=== PATIENT | female | born 1985 | race Caucasian/White ===

== ENCOUNTER 2024-10-04 10:05 | Outpatient (AMB) | payer BC, SELFPAY ==
--- NOTE | 2024-10-04 10:13 | A.SPINEOV_ITS ---
Vital Signs 10/04/24 10:13 Height 5 ft 4 in Weight 175 lb BMI 30.0 Intake Visit Reasons: low back pain Intake Note: Mrs. Kaur is here today c/o low back pain. Special Officer Required: No Allergies amoxicillin Allergy (Severe, Verified 10/04/24 10:14) Unknown Physical Exam Vital Signs: BMI result Body Mass Index 30.0 Assessment & Plan Assessment & Plan (1) Right hip pain: Code(s): M25.551 - Pain in right hip Category: Medical (2) Chronic SI joint pain: Code(s): M53.3 - Sacrococcygeal disorders, not elsewhere classified; G89.29 - Other chronic pain Category: Medical Plan This is a self-referred 39-year-old female who presents today for evaluation of chronic low back pain, chronic SI joint region pain as well as bilateral hip pain, right greater than left. It all started 2 years ago when she began the process of labor for her daughter. She had an uneventful and when she started with contractions she went to the hospital. Initially there was an attempt to do an epidural, briefly worked but then unfortunately stopped working and they are unable to get another want to replace it to give her adequate pain relief. She has a history of scar tissue in her cervix area and unfortunately will labor progressed she was unable to dilate appropriately and was pushing extremely hard for about 5 or 6 hours. She describes it as having intense tearing pain in her low back during the process. Her who is with a reports that she had her knees up to her chest pushing in intense pain for about 5-6 hours. Eventually she was able to give , but since that time she has never felt right. Specifically what she feels is chronic low back pain which is along the beltline which radiates out toward the SI joints and will go down into her hips. There is also a feeling of anterior hip pain. She hears a clunking and a popping feeling when she externally rotates her hip. She will also get electrical sensations that seemed to radiate down her legs into her feet as well. It is very painful makes it difficult to walk. By the time she walks from her car to the door at her work place, she is in tremendous amounts of pain she has to sit down. Sleeping is difficult, activities with her daughter or difficult. It has been a very strenuous. For her just trying to get through the pain. She will take lidocaine patches, Aleve, ibuprofen, Biofreeze, massage, heat, ice etc.. She has also been trialed on steroids. She trialed physical therapy and chiropractic. She had been very frustrated with her quality of life. She came today to see us with an MRI showing degenerative disc disease at L3-4. PMH: She is otherwise healthy, she had a cardiac ablation in 2009 for SVT, she had a LEEP procedure, D and C for miscarriage in 2021, left leg varicose vein removal. She has hemorrhoids from the birthing process as well and needs a hemorrhoidectomy. Social hx: She does not smoke cigarettes,, no alcohol use. Medications: As above, all the above-mentioned [id number] medications done for pain control. Allergies: Amoxicillin Physical exam: Patient is awake alert oriented, no acute distress, she is able to stand up on her own albeit slowly from a chair. Her motor examination reveals some limitations with hip flexion secondary to pain. Distal lower extremity strength and reflexes normal. She has positive finger Srini test. She has tremendous amounts of pain with external rotation of her right hip. She has similar discomfort in her left hip but in the right side she almost jumped off the table with the motion. MAK testing also generates pain primarily on the right side. SI joint compression test directly to the SI joint region does produce some discomfort. Imaging review: There is a lumbar MRI done showing normal alignment, a mild to moderate size disc bulge with no compression of the nerves. No significant disc collapse or spondylolisthesis seen. She reportedly had a right hip x-ray done at [facility] and that was normal. Impression: 39-year-old female as above with a traumatic experience giving , who was normal before that, but afterwards has been experiencing tremendous low back pain along the belt line radiating into her hips, occasional feeling of electrical sensation that shoots down her legs. Her lumbar MRI does not show any significant findings for nerve compression or collapsed disc. There is a small disc bulge at L3-4 but it would not explain this discomfort. Given the history of the legs being hyperflexed during the birthing process and the amount of pushing that was going on, she could have had some kind of hip injury. I am thinking maybe labral tear. Her reports that she had her legs flexes like that for about 4-6 hours. She has tremendous pain with internal but more so with external rotation. The hip x-rays she had done at [facility] was normal but this could be missing some of the deeper anatomy. I will send her for an MRI of the right hip to rule out she has some kind of injury the re. Another possibility with regard to the low back pain situation is SI joint inflammation or instability. It is well-known that during these joints can become slightly lax and with the amount of stress from the pushing, maybe she has some underlying pathology there. I am going to send her to in [facility] for SI joint injections. Hopefully these will give her some relief, and if she has a good response to it she may be a candidate for SI joint fusion. Thank you for allowing us to care for your patient. The total time spent with this visit with this patient was 45 minutes reviewing history, physical exam, lumbar imaging review, and implementation of treatment plan or further diagnostic testing Félix Olguin MD,PhD [facility] Orders: Orders MR hip RT wo/w con Today M25.551 - Pain in right hip Referrals Pain Management Referral G89.29 - Other chronic pain, M53.3 - Sacrococcygeal disorders, not elsewhere classified Coding Level of Care Code New Pt Level 4 (66263) Diagnoses Right hip pain M25.551 Chronic SI joint pain M53.3; G89.29
--- OUTSIDE RECORDS SUMMARY | 2024-10-04 10:47 | XMS_ITS | Continuity of Care Document ---
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 Plan of Treatment Reminders Order Date Submit Date Provider Last Modified By Organization Details Last Modified Time Details Appointments Establish ed Patient 20 2024 10:40A M MARIELLA HENRIQUEZ NP Not available Not available Not available Lab None recorded. Referral orthopedi c spine surgeon referral 2024 [facility], [address] [place] [address] [place], [address], 09/17/2024 14:01:57 Procedures None recorded. Surgeries None recorded. Imaging MRI, lumbar spine, w/o contrast 2024 025 [facility] (Central Scheduling For Imaging And Labs), [address] [place], [address], 09/25/2024 08:19:02 Medication Orders sertralin e 150 mg capsule 2024 025 [facility] #[id number], [address] [place], [address], 09/17/2024 13:46:37 Patient TargetsNo targets recorded. Patient InstructionsNo instructions recorded. Reason for Referral Orthopedic Spine Surgeon Ref erral for Chronic low back pain Referring Physician: Mariella Henriquez, Family Medicine, Encounter Date: 09/17/2024 Results Created Date Observation Date Name Description Value Unit Range Abnormal Flag Note LastModifiedBy Organization Detail LastModifiedTime 09/25/19 25 09/24/2024 MRI, lumba r spine , w/o contr ast Patien t Name: DUKE COFFMAN : [id number] Sex:Fe male 609; 505 Locati on: [facility] - MR [id number] 659 [facility] [address] 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 Compar dread: Lumbar spine radiog raph 09/21/19 24 Findin gs: Alignm ent: The bony alignm ent is well mainta ined. No sublux ation is seen. Bone marrow : The bone marrow signal is well mainta ined. Verteb ral height s are well-p reserv ed. Conus: Conus is normal in appear ance and positi on. Disc spaces : Disc spaces are intact . L1-2: Unrema rkable withou t eviden ce of neural forami nal narrow ing or spinal canal stenos is. L2-3: Mild diffus e disc bulge withou t eviden ce of neural forami na narrow ing or spinal canal stenos is L3-4: Disc protru natividad with no spinal canal or neural forami na narrow ing L4-5: Mild disc bulge with annula r fissur e with no spinal canal or neural forami na narrow ing L5-S1: Diffus e disc bulge withou t signif icant neural forami na narrow ing or spinal canal stenos is. Mild facet arthro celestina is presen t. Annula r fissur e. Admitt ing: MARTINEZ BARRIGA, VIANEY Whyte Consul ting: Krystian briceno Name: DUKE COFFMAN : [id number] Sex:Fe male 609; 505 Locati on: [facility] [id number] [address] [place] [address]- Radiol ogy Report Soft tissue : Prever tebral soft tissue s are unrema rkable . Visual ized abdomi nal viscer a is unrema rkable . Impres natividad: 1.Disc protru natividad at L3-4 with no spinal canal or neural forami nal narrow ing. 2.Inle t fissur es at L4-5 and L5-S1. Attend ing review by Isamar diaz M.D. I have person ally review ed the study and agree with the report ed donnell gs. 1.Read [facility] Site: [facility] ____ Fin al Report Dictat ed: 2024 5:05 pm Dictat ed By: BARTOLO IBRAHIM [facility] Signat ure: 2024 8:16 am Signed By: CHALINO DIAZ MD, ISAMAR Holt ing: VIANEY HENRIQUEZ CNP Consul ting: [facility] (Radiology) [address] [place] [address], [address], 09/25/2024 11:13:56 09/25/19 25 09/24/2024 MRI, lumba r spine , w/o contr ast No observ ation record ed. [facility] Medical Records [address] [place] [address], [id number], 09/25/2024 09:53:53 Result Notes None recorded. Problems Name Problem SNOMED Code Status Onset Date Resolution Date Notes Provider Name and Address Organization Details Recorded Time Low back pain 758348148 Completed 200909/21/2009 Patria Vasquezko otoniel [facility] 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 7 14:07:17 Cough 64554584 Completed 04/21/2017 Mavis Grimes MD [address] [place] [address], [phone] 6, [facility] 7 14:20:52 Chest pain 12593894 Completed 04/21/2017 Mavis Grimes MD [address] [place] [address], [phone] 6, [facility] 7 14:07:21 Paroxysm al supraven tricular tachycar marvel 26962241 Active she gets occasiona l bouts of tachycard ia, she had an ablation in 2010, triggered by anxiety Patria Bradshaw otoniel [facility] 3 15:06:19 Anxiety state 639709200 Active more work based, she does not want to take anything daily, she takes clonazepa m at bedtime Patria frederick [facility] 3 15:06:18 Amenorrh ea 81416233 Completed 04/21/2017 Mavis Grimes MD [address] [place] [address], [phone] , [facility] 7 14:20:47 Loss of appetite 72785898 Completed 04/21/2017 Mavis Grimes MD [address] [place] [address], [phone] , [facility] 7 14:07:08 Depressi ve disorder 95613473 Active she sees psych Patria frederick, [facility] 3 15:06:18 Malaise and fatigue 037177571 Completed 04/21/2017 Mavis Grimes MD [address] [place] [address], [phone] 6, [facility] 7 14:20:43 Anal fissure 59995307 Completed 09/27/2019 MARIELLA HENRIQUEZ NP [address] [place] [address], [phone], [facility] 0 11:38:25 Internal hemorrho ids 93648171 Completed 09/27/2019 MARIELLA HENRIQUEZ NP [address] [place] [address], [phone] , [facility] 0 11:40:09 Vaginiti s 14147418 Completed 04/21/2017 Mavis Grimes MD [address] [place] [address], [phone] 6, [facility] 7 14:21:00 Injury of hand 768826659 Completed 04/21/2017 Mavis Grimes MD [address] [place] [address], [phone] 6, [facility] 7 14:07:27 Conjunct ivitis 5476354 Completed 04/21/2017 Mavis Girmes MD [address] [place] [address], [phone] 6, [facility] 7 14:07:13 Varicose veins of lower extremit y 01822677 Active she had schleroth erpay on the left leg, now starting up slightly on the right leg Patria frederick, [facility] 3 15:06:19 Acute sinusiti s 66281528 Completed 04/21/2017 Mavis Grimes MD [address] [place], [phone], [facility] [employer] [facility] 7 14:07:25 Screenin g for malignan t neoplasm of cervix Active 201711/07/14 wnl 2018 high risk hpv and normal pap repeat in 12 months HAO II negative margins Leep done mar 2019 sees Caren Berry fu pap advised in 3 months 03/10/21 wnl MARIELLA HENRIQUEZ NP [address] [place], [address], [facility] [employer] [facility] 4 14:03:49 Abnormal eating pattern 109257923 Active 2017 pt does not eat until dinner, she has very little appetite, she needs to vape to get an appetite, she used to be over 200lbs and has some phobias about gaining weight, referred to nutrition ist Patria frederick [facility] [employer] 3 15:06:18 Cervical intraepi thelial neoplasi a 604454802 Active 2019 HAO II negative margins Leep done mar 2019 sees Caren Berry 12/17/18 ASCUS, HPV positive Patria frederick [facility] [employer] 3 15:06:18 Migraine with aura 7850909 Active 2019 Patria frederick [facility] [employer] 3 15:06:18 Problem Notes None recorded. Procedures Surgical History Date Name Laterality Status Provider Name and Address Organization Details Recorded Time 10/20/19 23 Perineoplasty rpr per nonob completed MARIELLA HENRIQUEZ NP [address] [place], [address], [facility] [employer] 10/25/2022 07:36:09 04/08/20 19 LEEP completed Patria Bradshaw [facility] [employer] [facility] [employer] 09/27/2019 11:23:03 06/24/20 16 Other completed Kenna Sexton [facility] [employer] 07/14/2016 10:08:30 03/23/20 11 Other completed Not Available [facility] 1 06:24:58 Other Surgeries completed Patria Bangura [facility] 03/10/2021 08:28:32 Vascular Surgery completed Patria Bradshaw [place] [facility] 03/10/2021 08:28:32 [employer] Hand Surgery completed Gunjan Sorensen [facility] 09/06/2023 11:26:50 Other completed Patria Bradshaw [facility] 03/10/2021 08:28:32 Imaging Results None recorded. Procedure Notes None recorded. Medical Equipment None Reported. Allergies Allergen ID Allergen Name Allergen Category Reaction Reaction Severity Criticality Documentation Date Start Date Code Code System Note Provider Name and Address Organization Details Recorded Time 507394 miconazol e nitrate medicatio n rash Not available Not available 11/23/2015 79921 RxNorm redne ss and swell ing Leatha Turner [facility] 6 13:47:47 772884 Wellbutri n medicatio n rash Not available Not available 11/23/2015 15691 RxNorm rash on face Leatha Turner [facility] 6 13:47:47 489391 hops extract food,medi cation anaphylax is Not available Not available 01/03/20232018 09711 6 [facility] 3 15:06:08 784509 bupropion hydrochlo ride medicatio n vomiting Not available Not available 01/03/20232021 10691 4 [facility]Norm [facility] 3 15:06:08 875136 melon extract food anaphylax is Not available Not available 01/03/20232018 63516 10 RxNorm [facility] 3 15:06:08 812732 avocado allergeni c extract food,medi cation anaphylax is Not available Not available 01/03/20232018 38269 2 RxNorm Patria frederick [facility] 3 15:06:08 01162 amoxicill in medicatio n Not available Not available Not available 12/28/20102018 723 RxNorm Patria frederick [place] [facility] 3 15:06:08 87842 Augmentin medicatio n Not available Not available Not available 03/28/2011 19663 2 RxNorm Not Available [facility] 1 06:23:51 Medications Name Sig Start Date Stop Date Status Note LastModified by Organization Details LastModified Time acidophil us tablets TK 1 T PO D. TK 2 TO 4 HOURS APART FROM DOSE OF ANTIBIOT ICS. 09/27 completed Not Available Not Available Not Available cyclobenz aprine 10 mg tablet TK 1 T PO BID PRN 05/21 completed Not Available Not Available Not Available terconazo le 0.4 % vaginal cream INSERT 1 APPLICAT ORFUL VAGINALL Y EVERY DAY FOR 7 DAYS 04/14 completed Not Available Not Available Not Available bupropion HCl SR 150 mg tablet,12 hr sustained -release active Not Available Not Available Not Available nystatin 100,000 unit/mL oral suspensio n Take 10 mL 4 times a day by oral route for 10 days. 11/30 completed Not Available Not Available Not Available clonidine HCl 0.1 mg tablet active Not Available Not Available No t Available acetamino phen 325 mg tablet Take 650 mg by oral route. 01/03 completed Not Available Not Available Not Available nicotine 14 mg/24 hr daily transderm al patch FRANK 1 PATCH QD 07/14 completed Not Available Not Available Not Available citalopra m 40 mg tablet TK 1 T PO QD 07/14 completed stopped seeing therapis t Not Available Not Available Not Available azithromy hao 250 mg tablet TAKE 2 TABLET BY MOUTH ONCE DAILY FOR 1 DAY THEN 1 TABLET BY MOUTH ONCE FOR 4 DAY 03/09 completed Not Available Not Available Not Available Necon 35 (28) 1 mg-35 mcg tablet active switched meds Not Available Not Available Not Available ibuprofen 800 mg tablet Take 1 tablet every 6 hours by oral route. 04/21 completed Not Available Not Available Not Available Lidocaine Viscous 2 % mucosal solution TAKE 20 ML BY MOUTH EVERY 4 HOURS NEEDED 09/27 completed Not Available Not Available Not Available fluconazo le 150 mg tablet TAKE 1 TABLET BY MOUTH EVERY 72 HOURS DIRECTED . 09/17 completed Not Available Not Available Not Available Vicodin 5 mg-500 mg tablet Take 1 tablet every 6-8 hours by oral route for 5 days. 08/21 completed Not Available Not Available Not Available citalopra m 10 mg tablet TK 1 T PO ONCE D active Not Available Not Available No t Available cephalexi n 250 mg capsule 09/27 completed Not Available Not Available Not Available hydrocodo ne 5 mg-acetam inophen 325 mg tablet TK 1 T PO DAILY 04/21 completed Not Available Not Available Not Available minocycli ne 100 mg capsule active Not Available Not Available Not Available sucralfat e 1 gram tablet TK 1 T PO QID FOR 15 DAYS PRN 12/21 completed Not Available Not Available Not Available metronida zole 0.75 % (37.5 mg/5 gram) vaginal gel INSERT 1 APPLICAT ORFUL VAGINALL Y EVERY DAY AT BEDTIME FOR 5 DAYS 09/17 completed Not Available Not Available Not Available metaxalon e 400 mg tablet 07/14 completed Not Available Not Available Not Available ondansetr on HCl 4 mg tablet 01/03 completed Not Available Not Available Not Available clonazepa m 0.5 mg tablet TAKE 1 TABLET BY MOUTH THREE TIMES DAILY NEEDED 03/10 completed Not Available Not Available Not Available sertralin e 100 mg tablet TAKE 1 TABLET BY MOUTH EVERY DAY 09/17 completed Not Available Not Available Not Available clonazepa m 1 mg tablet 01/03 completed Not Available Not Available Not Available Anucort-H C 25 mg supposito ry INSERT 1 SUPPOSIT ORY RECTALLY BID PRN active Not Available Not Available No t Available sumatript an 50 mg tablet 50mg PO x1; Max: 200 mg/24h; Info: may repeat dose x1 after 2h 03/09 completed Not Available Not Available Not Available metronida zole 500 mg tablet TAKE 1 TABLET BY MOUTH TWICE DAILY FOR 7 DAYS 04/14 completed Not Available Not Available Not Available levofloxa hao 250 mg tablet 04/21 completed Not Available Not Available Not Available sulfameth oxazole 800 mg-trimet hoprim 160 mg tablet TAKE 1 TABLET BY MOUTH EVERY 12 HOURS FOR 3 DAYS 04/14 completed Not Available Not Available Not Available tramadol 50 mg tablet 09/25 completed Not Available Not Available Not Available amitripty line 50 mg tablet TK 1 T PO HS 04/21 completed lost appetite Not Available Not Available Not Available triamcino lone acetonide 0.1 % topical cream active Not Available Not Available Not Available lidocaine -prilocai ne 2.5 %-2.5 % topical cream Apply a thin layer to affected area prn. Do not cover. active Not Available Not Available No t Available oxycodone -acetamin ophen 5 mg-325 mg tablet Take 1 tablet 3 times a day by oral route as needed. 07/14 completed Not Available Not Available Not Available citalopra m 20 mg tablet TK 1 T PO D active Not Available Not Available No t Available cephalexi n 500 mg capsule TAKE 1 CAPSULE BY MOUTH FOUR TIMES DAILY AROUND THE CLOCK FOR 10 DAYS 09/05 completed Not Available Not Available Not Available paroxetin e 30 mg tablet Take 2 tablets by oral route for 30 days. active Not Available Not Available No t Available paroxetin e 20 mg tablet Take 1 tablet every day by oral route in the morning for 30 days. active Not Available Not Available No t Available prednison e 50 mg tablet TAKE 1 TABLET BY MOUTH EVERY DAY FOR 5 DAYS 09/17 completed Not Available Not Available Not Available lidocaine 5 % topical patch 1 patch qd. Remove after 12 hrs. 09/27 completed Not Available Not Available Not Available polymyxin B sulfate 10,000 unit-trim ethoprim 1 mg/mL eye drops INSTILL 1 DROP INTO AFFECTED EYE(S) BY OPHTHALM IC ROUTE EVERY 6 HOURS active Not Available Not Available No t Available nicotine 21 mg/24 hr daily transderm al patch APPLY 1 PATCH TOPICALL Y QD FOR 28 DAYS 07/14 completed Not Available Not Available Not Available docusate sodium 100 mg capsule Take 100 mg by oral route. 01/03 completed Not Available Not Available Not Available sertralin e 25 mg tablet 50 mg by oral route. 09/29 completed Not Available Not Available Not Available omeprazol e 20 mg capsule,d elayed release TK 1 C PO QD 12/21 completed Not Available Not Available Not Available hydroxyzi ne HCl 25 mg tablet 12/21 completed Not Available Not Available Not Available desonide 0.05 % lotion active Not Available Not Available Not Available Cheratuss in AC 10 mg-100 mg/5 mL oral liquid Take 10 mL 3 times a day by oral route as needed. active Not Available Not Available No t Available epinephri ne 0.3 mg/0.3 mL injection , auto-inje ctor INJECT IN THE MUSCLE DIRECTED 01/03 completed Not Available Not Available Not Available ibuprofen 600 mg tablet Take 600 mg every 6 hours by oral route. 01/03 completed Not Available Not Available Not Available methylpre dnisolone 4 mg tablets in a dose pack Take as directed active Not Available Not Available No t Available albuterol sulfate HFA 90 mcg/actua tion aerosol inhaler Inhale 2 puffs every 4 hours by inhalati on route. 2012 active sample given Not Available Not Available Not Available paroxetin e 40 mg tablet active Not Available Not Available Not Available hydroxyzi ne HCl 10 mg tablet active Not Available Not Available No t Available ondansetr on 4 mg disintegr ating tablet 11/05 completed Not Available Not Available Not Available fluticaso ne propionat e 50 mcg/actua tion nasal spray,[place] [employer] [place] 2 sprays every day by intranas al route. 09/27 completed Not Available Not Available Not Available clotrimaz ole 1 % topical cream FRANK EXT TO THE AFFECTED AND SURROUND ING AREAS BID IN THE MORNING AND IN THE JOSE DE JESUS 09/27 completed Not Available Not Available Not Available sertralin e 50 mg tablet 04/14 completed Not Available Not Available Not Available adapalene 0.1 % topical gel active Not Available Not Available Not Available nicotine 7 mg/24 hr daily transderm al patch APPLY 1 PATCH TOPICALL Y QD 07/14 completed Not Available Not Available Not Available oxycodone 5 mg tablet 11/05 completed Not Available Not Available Not Available escitalop antonio 10 mg tablet TK 1 T PO D 05/21 completed Not Available Not Available Not Available cyclobenz aprine 5 mg tablet Take 1 tablet 3 times a day by oral route. 04/21 completed Not Available Not Available Not Available clonazepa m 0.25 mg disintegr ating tablet 03/10 completed Not Available Not Available Not Available Claravis 20 mg capsule active Not Available Not Available Not Available TriNessa (28) 0.18 mg(7)/0.2 15 mg(7)/0.2 5 mg(7)-35 mcg tablet TK 1 T PO D 07/14 completed Not Available Not Available Not Available escitalop antonio 5 mg tablet 04/21 completed Not Available Not Available Not Available metoprolo l tartrate 25 mg tablet Take 1 tablet twice a day by oral route for 30 days. active Not Available Not Available No t Available biotin 07/14 completed Not Available Not Available Not Available Ortho Tri-Cycle n (28) 01/19 completed Not Available Not Available Not Available cholecalc iferol (vitamin D3) 50 mcg (2,000 unit) tablet TAKE 1 TABLET BY MOUTH DAILY 04/14 completed Not Available Not Available Not Available B12 01/03 completed Not Available Not Available Not Available Lilia 3 mg-0.03 mg tablet active Not Available Not Available No t Available Estarylla 0.25 mg-35 mcg tablet TAKE 1 TABLET BY MOUTH EVERY DAY 12/21 completed Not Available Not Available Not Available TriNessa Lo 0.18 mg/0.215 mg/0.25 mg-25 mcg tablet TK 1 T PO QD 05/21 completed Not Available Not Available Not Available Simpesse 0.15 mg-30 mcg (84)/10 mcg(7) tablets,3 month dose pack TAKE 1 TABLET BY MOUTH EVERY DAY 09/17 completed Not Available Not Available Not Available COVID-19 test specimen collectio n TEST DIRECTED 03/09 completed Not Available Not Available Not Available sertralin e 150 mg capsule Take 1 capsule every day by oral route. 2024 active Not Available Not Available Not Avai lable Paxlovid 300 mg (150 mg x 2)-100 mg tablets in a dose pack 09/06 completed Not Available Not Available Not Available Unisom PM Pain 01/03 completed Not Available Not Available Not Available Vitals Date Recorded Body height Body mass index (BMI) Body weight Body temperature Respiratory rate Pain severity - 0-10 verbal numeric rating [Score] - Reported Heart rate Oxygen saturation Oxygen saturation in Arterial blood by Pulse oximetry Systolic blood pressure Diastolic blood pressure Provider Name and Address Organization Details Last Updated DateTime 5 162.56 cm 30.8 kg/m2 27481.8 3 g 97.3 [degF] 14 /min 7 80 /min 100 % 100 % 124 mm[Hg] 74 mm[Hg] Francisca Munoz [facility] 5 13:12:57 Social History Question Answer Notes LastModified by Organizat ion Details LastModified Time Tobacco Smoking Status Former Smoker Patria frederick [facility] 09/27/2019 11:27:10 Do You Have An Advance Directive? Yes Information not available 09/27/2019 What Is Your Level Of Alcohol Consumption? None Information not available 06/06/2018 Animal Exposure? Yes [email or web address] Information not available 09/06/2023 Are You Blind Or Do You Have Difficulty Seeing? No Information not available 04/21/2020 Is Blood Transfusion Acceptable In An Emergency? Yes Information not available 04/21/2020 What Is Your Level Of Caffeine Consumption? Moderate [email or web address] Information not available 09/06/2023 How Much Tobacco Do You Chew? None Information not available 09/27/2019 Are You Currently Employed? Yes Information not available 03/10/2021 Are You Deaf Or Do You Have Serious Difficulty Hearing? No Information not available 04/21/2020 What Type Of Diet Are You Following? REGULAR Lean Meats Fruits,veggi es [email or web address] Information not available 12/28/2010 Do You Or Have You Ever Used E-cigarettes Or Vape? Current User Of Electronic Cigarettes Information not available 03/10/2021 Education 4 Year College [email or web address] Informati on not available 09/06/2023 What Is The Highest Grade Or Level Of School You Have Completed Or The Highest Degree You Have Received? 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 No [email or web address] Information not available 09/06/2023 How Hard Is It For You To Pay For The Very Basics Like Food, Housing, Medical Care, And Heating? Somewhat Hard [email or web address] Information not available 09/06/2023 When Did You Quit Smoking? 6-10yearssinricky meza [email or web address] Information not available 11/06/2023 How Many Days In The Past Year Have You Had A Heavy Drinking Consumption (4+ Female, 5+ Male)? 0 [email or web address] Information not available 09/06/2023 Are There Any Guns Present In Your Home? No [email or web address] Information not available 09/06/2023 Which Of Your Hands Is Dominant? Right Information not available 04/21/2020 Do You Use Insect Repellent Routinely? No Information not available 09/06/2023 Live Alone Or With Others? With Others [email or web address] Information not available 09/06/2023 Date Of Last Colonoscopy Never Information not available 06/06/2018 Date Of Last Bone Density Scan Never Information not available 06/06/2018 Date Of Last PSA Never Information not available 06/06/2018 Sexual Orientation Heterosexual Information not available 06/06/2018 Do You Have A Health Care Proxy? Yes Paul Coffman(Toya saez) Information not available 09/27/2019 Have You Fallen Within The Last 12 Months No Information not available 01/19/2018 How Many Falls Have You Had Within The Last 12 Months? 0 Information not available 06/06/2018 If >2 Falls, Or 1 Fall With Serious Injury, Is There An Action Plan In Place? No Information not available 01/19/2018 Have You [place] Down, Depressed, Or Hopeless In The Last 2 Weeks? Yes Information not available 09/27/2019 Do You Have Little Interest Or Pleasure In Doing Things? No Information not available 01/19/2018 Do You Feel Safe In Your Home? Yes Information not available 04/21/2020 Do You Have Trouble Sleeping? No Over Sleeping Issues Information not available 04/21/2020 Average Hours Of Sleep Per Night? 9 Information not available 04/21/2020 Does The Patient Have Fever And Cough Or Shortness Of Breath AND In The Last 14 Days Has The Patient Come In Contact With Someone With Confirmed 2019-nCoV? No Information not available 09/27/2019 Does The Patient Have Fever OR Cough OR Shortness Of Breath? No Information not available 04/21/2020 In The Last 14 Days, Has The Patient Had Contact With A COVID-19 Positive Patient Or A COVID-19 Suspect Patient Awaiting Test Results? Yes Information not available 04/21/2020 If Pulse Oximetry Was Done: Is The Patient's Sp02 Less Than 93% On Room Air? No Information not available 03/10/2021 Does The Patient Have At Least TWO Of These Symptoms? Diarrhea, Chills, Muscle Pain, Repeated Shaking & Chills, Headache, Sore Throat, Or New Loss Of Taste/Smell No Information not available 04/21/2020 History Of Domestic Violence? No Information not available 04/21/2020 Have You Ever Engaged In Any Behavior That Put You At Risk For Odilia AIDS? No Information not available 06/06/2018 Are You In A Relationship In Which You Have Been Physically Hurt By Your Partner? No Information not available 01/19/2018 How Often Do You Use Sunscreen Sometimes [email or web address] Information not available 06/30/2011 Firearms Present In Home No [email or web address] Information not available 06/30/2011 How Often Do You Wear A Seatbelt Always [email or web address] Information not available 06/30/2011 If Yes, How Long Have You Smoked 2-5 Years [email or web address] Information not available 06/30/2011 If You Have Quit, How Long Has It Been? 1 Year Information not available 05/21/2018 Do You Ever Feel Afraid Of Your Partner? No Information not available 01/19/2018 When Is The Last Time You Had 4+ Alcoholic Drinks In The Same Sitting No Longer Drink/ Do Not Drink Information not available 06/06/2018 Illicit Or Recreational Drugs Yes Marijuana [email or web address] Information not available 11/23/2015 Do You Take Daily Aspirin No [email or web address] Information not available 06/30/2011 Marital Status [email or web address] Informati on not available 09/06/2023 What Was The Date Of Your Most Recent Tobacco Screening? 09/17/2024 Information not available 09/17/2024 How Many Children Do You Have? 0 [email or web address] Information not available 09/06/2023 Performs Monthly Self-breast Exam? Yes [email or web address] Information not available 09/06/2023 Do You Have Any Pets? Yes Information not available 03/10/2021 Do You Use Protection During Sex? Always [email or web address] Information not available 09/06/2023 What Is Your Relationship Status? Information not available 03/10/2021 Are You Sexually Active? Yes [email or web address] Information not available 09/06/2023 Number Of Sexual Partners 1 [email or web address] Information not available 09/06/2023 Smoke Alarm In Home Yes Information not available 09/06/2023 Do You Have Smoke And Carbon Monoxide Detectors In Your Home? Yes [email or web address] Information not available 09/06/2023 Are You Passively Exposed To Smoke? No [email or web address] Information not available 09/06/2023 Do You Or Have You Ever Used Smokeless Tobacco? Never Used Smokeless Tobacco [email or web address] Information not available 09/06/2023 Are There Any Smokers In Your House? No [email or web address] Information not available 09/06/2023 How Much Tobacco Do You Smoke? 0.5 PPD [email or web address] Information not available 09/06/2023 General Stress Level High [email or web address] Information not available 09/06/2023 Do You Feel Stressed (tense, Restless, Nervous, Or Anxious, Or Unable To Sleep At Night)? [id number] [email or web address] Information not available 09/06/2023 Do You Use Any Illicit Or Recreational Drugs? No Information not available 03/10/2021 Do You Use Sunscreen Routinely? No [email or web address] Information not available 09/06/2023 Has Tobacco Cessation Counseling Been Provided? No [email or web address] Information not available 09/06/2023 How Many Years Have You Smoked Tobacco? 15 Information not available 05/21/2018 Have You Used IV Drugs? No [email or web address] Information not available 09/06/2023 Are You Currently In School? No [email or web address] Information not available 09/06/2023 Do You Or Have You Ever Used Any Other Forms Of Tobacco Or Nicotine? No [email or web address] Information not available 11/06/2023 Sex: Female Functional Status Question Answer Note LastModified by Organizat ion Details LastModified Time Do you have difficulty walking or climbing stairs? No [email or web address] Information not available 09/06/2023 Do you have transportation difficulties? No [email or web address] Information not available 09/06/2023 Urinary incontinence assessment performed? Yes [email or web address] Information not available 09/06/2023 Are you able to walk? [email or web address] Information not available 09/06/2023 Do you have difficulty doing errands alone? No [email or web address] Information not available 09/06/2023 Are you able to care for yourself? Yes Information n ot available 04/21/2020 What is your exercise level? Occasional Information not available 04/14/2022 Mental Status Question Answer Note LastModified by Organizat ion Details LastModified Time Do you have difficulty concentrating, remembering or making decisions? Yes Concentrating issues/foggy [email or web address] Information not available 09/06/2023 Family History Relationship Description Onset Age of this Age Resolved Age Notes LastModified by Organization Details LastModified Time Father Heart disease [email or web address] Not available 2015 10:17:29 Father Hypertensive disorder previo usly record ed as high blood pressu re Not available 05/09/2016 10:17:29 Father Alcoholism [email or web address] Not available 09/17/2024 13:01:14 Maternal Grandmother Hypertensive disorder previo usly record ed as high blood pressu re Not available 05/09/2016 10:17:29 Sister Asthma [email or web address] Not available 11:41:56 Sister Alcoholism [email or web address] Not available 09/17/2024 13:01:14 Mother Alcoholism [email or web address] Not available 09/17/2024 13:01:14 Medical History Condition Response Anxiety Disorder Y Anxiety Y Back/Neck Pain N Depression Y Gynecological History Statement/Question Response History of Endometriosis N Flow Heavy Date of LMP 10/08/2023 Date of last pap 10/09/2022 Facility of last mammogram N/A History of infertility N Number of Terminations? 0 Vaginal discharge Y Number of Abortions 0 Number of Pregnancies? 2 History of Abnormal Pap Smear? Y Number of Miscarriages? 1 Date of last mammogram Never Breast Problems None History of polycystic ovarian disease N Total # of Births 1 Duration of Flow (days) 5 Do you perform routine breast exams? N Age at Menarche 11 Current Control Method Condoms Abnormal MMG N Result of last mammogram N/A Date of Abnormal Pap 02/11/2019 Menses Monthly Y Number of Live Births? 0 LMP Approximate History of frequent UTI N Obstetrics History GPAL:G 1 P 1 0 0 1 Type Value Full Term 1 Living 1 Total 1 Immunizations Vaccine Type Date Status Note Provider Nam e and Address Organization Details Recorded Time Tdap 04/21/2017 completed Not Available [facility] 02:14[facility]03 Tdap 08/14/2005 completed Gunjan frederick [facility] 01/05/2024 10:02:11 Tdap 07/19/2022 completed Gunjan frederick [facility] 01/05/2024 10:02:11 Past Encounters Encounter ID Performer Location Encounter Start Date Encounter Closed Date Diagnosis/Indication Diagnosis SNOMED-CT Code Diagnosis ICD10 Code Diagnosis Note [id number] MARIELLA HENRIQUEZ NP [facility] [address] [address] 09/17/2024 12:54:19 09/17/2024 13:31:12 Chronic low back pain 170754698 M54.50 B/L. R>L. Since having her daughter 09/2022. 09/21/23 lumbar and right hip xray completed- wn. She has completed PT from 2023. She has been taking alieve, applying biofreeze/ tiger balm, applying heat pack. She has also seen a chiropract or and massage therapist for the past several months with no improvemen t. Will order lumbar MRI. Referral placed to spine surgeon for further eval as well. Chronic sciatica [id number] M54.31 B/L. R>L. Since having her daughter 09/2022. 09/21/23 lumbar and right hip xray completed- wnl. She has completed PT from 2023. She has been taking alieve, applying biofreeze/ tiger balm, applying heat pack. She has also seen a chiropract or and massage therapist for the past several months with no improvemen t. Will order lumbar MRI. Referral placed to spine surgeon for further eval as well. Menorrhagia [id number] N9 2.0 Seeing carton forming machine adjuster. She has the mirena IUD in but it is not helping. She is planning on having a hysterecto my in the future. Anxiety state [id number] F41.1 Anxiety- Patient has been experienci ng generalize d anxiety related to chronic overwhelmi ng stress. Patient has also noted low mood. Patient is advised that sunlight, diet and exercise have a significan t impact on mood. We talked about the role of calming techniques and yoga meditation and mindfulnes s Patient has been having more breakthrou gh anxiety on 100mg sertraline . Will increase to 150mg (09/17/24). Health Concerns Section Related Observation LastModified by Organization Detai ls LastModified Time None Recorded Concern Status LastModified by Organization Details LastModified Time None Recorded Payers Encounter Date Sequence Insurance Name Policy Number Policy Basurto Covered Member ID Basurto Member ID Guarantor Name 09/17/2024 1 [facility] [id number] Duke Coffman [id number] Duke Coffman Notes Date Note Type Note Provider Name and Address Organization Details Recorded Time 09/17/2024 text/html Patient continue s to have low back pain. She completed PT from October- November 2023. She completed xrays on 09/21/23. She has also been seeing a chiropractor and massage therapy. Radiating to her right hip. Numbness/tingling down her right knee. She has tried alieve, percocet, lidocaine patches, biofreeze, heating pad, anti-fatigue mat. She is doing daily exercise- elliptical. She also will be planning on having a hysterectomy. MARIELLA HENRIQUEZ NP [address] [place] [address], [phone], [facility] - [facility]. 09/17/2024 13:46:57 OBGyn Episode No OBEpisode recorded.
--- OUTSIDE RECORDS SUMMARY | 2024-10-04 10:47 | XMS_ITS | Encounter Summary ---
Author Organization [facility] Address [address] [place] [address] Care Team Providers Care Lens Examiner Name Role Phone Unavailable Primary Care Provider Unavailabl e Prior Encounters Date Type Department Care Team Description 06/13/2023 11:15 AM EDT Office Visit [facility] [address], [address] [address] Leeanna Sunshine, [facility] 06/13/2023 10:30 AM EDT Office Visit [facility] [address], [address] [address] Sandeep Moreno, [facility] 03/07/2023 11:00 AM EDT Office Visit [facility] [address], [address] [address] [place], [facility] 12/19/2022 Travel 12/19/2022 12:00 PM EDT Office Visit [facility] [address], [address] [address] Sandeep Moreno, [facility] 12/19/2022 1:00 PM EDT Office Visit [facility] [address], [address] [address] Leeanna Sunshine [facility] 11/29/2022 3:30 PM EDT Office Visit [facility] [address], [address] [address] Francisca Park [facility] 11/29/2022 2:30 PM EDT Office Visit [facility] [address], [address] [place] [phone] Sandeep Moreno, [facility] 09/02/2019 Converted 13x Documents [facility] [address], [address] [place] [address] <No scans attached> Last Filed Vital Signs Vital Sign Reading Time Taken Comments Blood Pressure 122/88 06/13/2023 10:26 AM EDT Pulse 78 06/13/2023 10:26 AM EDT Temperature - - Respiratory Rate - - Oxygen Saturation - - Inhaled Oxygen Concentration - - Weight - - Height - - Body Mass Index - - Plan of Treatment Not on file Procedures Procedure Name Priority Date/Time Associated Diagnosis Comments PERIO MAINTENANCE Routine 06/13/2023 11: 15 AM EDT ORAL HYGIENE INSTRUCTIONS Routine 2022 11:15 AM EDT LL ANTIBACT IRR/QUAD Routine 06/13/2023 11:15 AM EDT UL ANTIBACT IRR/QUAD Routine 06/13/2023 11:15 AM EDT LR ANTIBACT IRR/QUAD Routine 06/13/2023 11:15 AM EDT UR ANTIBACT IRR/QUAD Routine 06/13/2023 11:15 AM EDT ZULEIMA DECON Routine 06/13/2023 11:15 AM EDT TOPICAL APPLICATION OF FLUORIDE VARNISH Routine 06/13/2023 11:15 AM EDT PERIODIC ORAL EVALUATION - ESTABLISHED PATIENT Routine 06/13/2023 10:30 AM EDT ORAL HYGIENE INSTRUCTIONS Routine 2022 11:00 AM EDT PERIO MAINTENANCE Routine 03/07/2023 11: 00 AM EDT TOPICAL APPLICATION OF FLUORIDE VARNISH Routine 12/19/2022 1:00 PM EDT ORAL HYGIENE INSTRUCTIONS Routine 2022 1:00 PM EDT UR ZULEIMA DECON ONE TO THREE TEETH/QUAD Routine 12/19/2022 1:00 PM EDT UR PERIODONTAL SCALING AND ROOT PLANING - ONE TO THREE TEETH PER QUADRANT Routine 12/19/2022 1:00 PM EDT UR ANTIBACT IRR/QUAD Routine 12/19/2022 1:00 PM EDT LR ZULEIMA DECON ONE TO THREE TEETH/QUAD Routine 12/19/2022 1:00 PM EDT LR PERIODONTAL SCALING AND ROOT PLANING - ONE TO THREE TEETH PER QUADRANT Routine 12/19/2022 1:00 PM EDT LR ANTIBACT IRR/QUAD Routine 12/19/2022 1:00 PM EDT 29 DO RESIN-BASED COMPOSITE - TWO SURFACES, POSTERIOR Routine 12/19/2022 12:00 PM EDT 30 MO RESIN-BASED COMPOSITE - TWO SURFACES, POSTERIOR Routine 12/19/2022 12:00 PM EDT ADJUNCTIVE PRE-DIAGNOSTIC TEST THAT AIDS IN DETECTION OF MUCOSAL ABNORMALITIES Routine 11/29/2022 3:30 PM EDT UL ZULEIMA DECON ONE TO THREE TEETH/QUAD Routine 11/29/2022 3:30 PM EDT UL ANTIBACT IRR/QUAD Routine 11/29/2022 3:30 PM EDT UL PERIODONTAL SCALING AND ROOT PLANING - ONE TO THREE TEETH PER QUADRANT Routine 11/29/2022 3:30 PM EDT LL ZULEIMA DECON ONE TO THREE TEETH/QUAD Routine 11/29/2022 3:30 PM EDT LL ANTIBACT IRR/QUAD Routine 11/29/2022 3:30 PM EDT LL PERIODONTAL SCALING AND ROOT PLANING - ONE TO THREE TEETH PER QUADRANT Routine 11/29/2022 3:30 PM EDT INTRAORAL PHOTO Routine 11/29/2022 2:30 PM EDT INTRAORAL PHOTO Routine 11/29/2022 2:30 PM EDT INTRAORAL PHOTO Routine 11/29/2022 2:30 PM EDT INTRAORAL PHOTO Routine 11/29/2022 2:30 PM EDT ADDITIONAL X-RAY Routine 11/29/2022 2:30 PM EDT ADDITIONAL X-RAY Routine 11/29/2022 2:30 PM EDT ADDITIONAL X-RAY Routine 11/29/2022 2:30 PM EDT ADDITIONAL X-RAY Routine 11/29/2022 2:30 PM EDT ADDITIONAL X-RAY Routine 11/29/2022 2:30 PM EDT BITEWINGS - FOUR RADIOGRAPHIC IMAGES Routine 11/29/2022 2:30 PM EDT SINGLE X-RAY Routine 11/29/2022 2:30 PM EDT COMPREHENSIVE ORAL EVALUATION - NEW OR ESTABLISHED PATIENT Routine 11/29/2022 2:30 PM EDT [address] CAPTURE AND INTERPRETATION WITH FIELD OF VIEW OF BOTH JAWS; WITH OR WITHOUT CRANIUM Routine 11/29/2022 2:30 PM EDT Visit Diagnoses Not on file Insurance
--- OUTSIDE RECORDS SUMMARY | 2024-10-04 10:47 | XMS_ITS | Clinical Summary ---
Author Organization [facility] Address [address] [place] [address] Care Team Providers Care Assistant Health Educator Name Role Phone Unavailable Primary Care Provider Unavailabl e Allergies Active Allergy Reactions Criticality Noted Date Comments Amoxicillin Other,Unknown 03/17/2011 Same Avocado Extract Anaphylaxis High 03/28/2019 Bupropion Hcl Rash Low 11/29/2022 Cantaloupe Itching 11/29/2022 Hops 02/17/2016 Hives. Vomiting Hydrocodone-Acetaminop hen Nausea And Vomiting,Other 06/09/2016 Melon Anaphylaxis High 03/28/2019 Miconazole Nitrate Rash Low 11/29/2022 Penicillins Other High 08/19/2011 Horrible yeast infection Watermelon Anaphylaxis High 11/29/2022 Medications methylPREDNISo lone (MEDROL DOSPAK) 4 mg tablet methylprednisolone 4 mg tablets in a dose pack Active EPINEPHrine (EPIPEN) 0.3 mg/0.3 mL injection syringe epinephrine 0.3 mg/0.3 mL injection, auto-injector INJECT IN THE MUSCLE DIRECTED Active ISOtretinoin (Claravis) 20 mg capsule Claravis 20 mg capsule Active lidocaine-pril ocaine (EMLA) 2.5-2.5 % cream lidocaine-prilocaine 2.5 %-2.5 % topical cream Active metoprolol tartrate (LOPRESSOR) 25 mg tablet metoprolol tartrate 25 mg tablet Active minocycline (MINOCIN,DYNAC IN) 100 mg capsule minocycline 100 mg capsule Active norethindrone- ethin estradioL (ORTHO-NOVUM 1-35 TAB,NORTREL 1-35 TAB) 1-35 mg-mcg tablet Necon 1/35 (28) 1 mg-35 mcg tablet Active norgestimate-e thinyl estradioL (ORTHO TRI-CYCLEN LO) 0.18/0.215/0.2 5 mg-25 mcg tablet Take 1 tablet by mouth 1 (one) time each day. Active ondansetron (ZOFRAN) 4 mg tablet ondansetron HCl 4 mg tablet Active PARoxetine (PAXIL) 20 mg tablet paroxetine 20 mg tablet Active polymyxin B sulf-trimethop rim (POLYTRIM) ophthalmic solution polymyxin B sulfate 10,000 unit-trimethoprim 1 mg/mL eye drops Active sertraline (ZOLOFT) 100 mg tablet sertraline 100 mg tablet Active adapalene (DIFFERIN) 0.1 % gel Active albuterol HFA (PROVENTIL HFA;VENTOLIN HFA) 90 mcg/actuation inhaler every 4 (four) hours. Active buPROPion SR (WELLBUTRIN SR) 150 mg 12 hr tablet Active cephalexin (KEFLEX) 500 mg capsule TAKE 1 CAPSULE BY MOUTH FOUR TIMES DAILY AROUND THE CLOCK FOR 10 DAYS Active citalopram (CeleXA) 20 mg tablet Take 1 tablet by mouth in the morning. Act liss citalopram (CeleXA) 10 mg tablet TK 1 T PO ONCE D Act liss clonazePAM (KlonoPIN) 0.5 mg tablet Take by mouth. Activ e clonazePAM (KlonoPIN) 1 mg tablet clonazepam 1 mg tablet Active cloNIDine (CATAPRES) 0.1 mg tablet Active codeine-guaife nesin (ROBITUSSIN-AC ) 10-100 mg/5 mL syrup Take 10 mL 3 times a day by oral route as needed. Active desonide (DESOWEN) 0.05 % lotion Active hydrocortisone (Anucort-HC) 25 mg suppository INSERT 1 SUPPOSITORY RECTALLY BID PRN Active hydrOXYzine HCL (ATARAX) 10 mg tablet Active PARoxetine (PAXIL) 30 mg tablet Take 2 tablets by oral route for 30 days. Active PARoxetine (PAXIL) 40 mg tablet Active Active Problems Problem Noted Date Diagnosed Date Acute sinusitis 06/13/2023 06/13/2023 Amenorrhea 06/13/2023 06/13/2023 Marijuana user 06/13/2023 06/13/2023 Overview (06/13/2023): -medical marijuana for anxiety -aware of the risks - plan for utoxes and continued discussion throughout Depressive disorder 11/29/2022 11/29/2022 Paroxysmal supraventricular tachycardia 11/30/19 23 11/29/2022 Tobacco dependence syndrome 11/29/202211/12 History of miscarriage 02/27/2022 Overview (06/13/2023): D&C Migraine with aura 09/27/2019 11/29/2022 High-risk human papillomavir us (HPV) DNA detected in cervical specimen 01/30/2019 11/29/2022 Overview (06/13/2023): Cervical high risk human papillomavirus (HPV) DNA test positive; W/U Status: confirmed Anxiety 10/25/2017 11/29/2022 Palpitations 06/04/2012 06/13/2023 Anxiety disorder due to general medical conditio n 04/25/2011 06/13/2023 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 06/13/2023 Immunizations Immunization Administration Dates Next Due DTP 09/01/1989,02/24/1988,1987 ,1987 HIB (PRP-T) 03/22/1989 MMR 12/01/1988 OPV 09/01/1989,1987,1987 Tdap 07/19/2022,04/21/2017,08/14/2005 Social History Tobacco Use Types Packs/Day Years Used Date Smoking Tobacco: Never Assessed Comments Unknown Sex and Gender Information Value Date Recorded Sex Assigned at Not on file Legal Sex Female 9:21 PM PST Gender Identity Female 11/28/2022 11:03 AM PDT Sexual Orientation Not on file Last Filed Vital Signs Vital Sign Reading Time Taken Comments Blood Pressure 122/88 06/13/2023 10:26 AM EDT Pulse 78 06/13/2023 10:26 AM EDT Temperature - - Respiratory Rate - - Oxygen Saturation - - Inhaled Oxygen Concentration - - Weight - - Height - - Body Mass Index - - Plan of Treatment Health Maintenance Due Date Last Done Comments Dental X-Ray: Panoramic 1987 Velscope Screening 05/31/2023 11/29/2022 Dental X-Ray: Bitewings 06/01/2023 11/29/2022 Periodontal Maintenance 09/14/2023 06/13/2023, 03/07 Dental Oral Exam 12/13/2023 06/13/2023, 11/29/2022 Scaling and Root Planing 01/02/2025 023, 12/19/2022, 11/29/2022, Additional history exists Dental CBCT 11/29/2025 11/29/2022 Dental X-Ray: Full Mouth 12/01/2025 11/30/2022, 11/12 Meningococcal B Vaccine Aged Out No l onger eligible based on patient's age to complete this topic Procedures Procedure Name Priority Date/Time Associated Diagnosis Comments PERIO MAINTENANCE Routine 06/13/2023 11: 15 AM EDT PERIODIC ORAL EVALUATION - ESTABLISHED PATIENT Routine 06/13/2023 10:30 AM EDT LR PERIODONTAL SCALING AND ROOT PLANING - ONE TO THREE TEETH PER QUADRANT Routine 12/19/2022 1:00 PM EDT ADJUNCTIVE PRE-DIAGNOSTIC TEST THAT AIDS IN DETECTION OF MUCOSAL ABNORMALITIES Routine 11/29/2022 3:[address] CAPTURE AND INTERPRETATION WITH FIELD OF VIEW OF BOTH JAWS; WITH OR WITHOUT CRANIUM Routine 11/29/2022 2:30 PM EDT from Last 3 Months or Most Recently Relevant to Health Maintenance Insurance
--- OUTSIDE RECORDS SUMMARY | 2024-10-04 10:47 | XMS_ITS | Encounter Summary ---
Author Organization [facility] Address [address] [place] [address] Care Team Providers Care Patient Financial Representative Name Role Phone Mavis Grimes MD Primary Care Provider [phone] Mavis Grimes MD Unavailable [phone] Leonora Beasley NP Primary Care Provider [phone] Encounter Details Date Type Department Care Team (Late st Contact Info) Description 06/09/2016 Orders Only [facility] Pre-Admission Testing [address] [facility] [address] [place] [address] Arianna Vincent NP Social History Tobacco Use Types Packs/Day Years Used Date Smoking Tobacco: Every Day Cigarettes 0.5 20.6 Started: 02/17/2004 Smokeless Tobacco: Former Quit: 01/13/2016 Alcohol Use Standard Drinks/Week Comments No 0 (1 standard drink = 0.6 oz pur e alcohol) Comments No Sex and Gender Information Value Date Recorded Sex Assigned at Not on file Legal Sex Female 1:46 AM EDT Gender Identity Not on file Sexual Orientation Not on file 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 Procedure Name Priority Date/Time Associated Diagnosis Comments EKG-TO BE READ & BILLED BY ADULT OR PEDIATRIC CARDIOLOGY Routine 06/09/2016 3:51 PM EDT Preop examination Varicose veins of left lower extremities with pain Mood disorder (HCC) SVT (supraventricular tachycardia) (HCC) documented in this encounter Results * Due to [place] [employer] law, this organization might not be sharing negative HIV tests. * EKG-TO BE READ AND BILLED BY CARDIOLOGY (06/09/2016 3:51 PM EDT) VENTRICULAR RATE 69 BPM MUS E EKG SYSTEM ATRIAL RATE 69 BPM MUSE EKG SYSTEM P-R INTERVAL 108 ms MUSE EK G SYSTEM QRS DURATION 82 ms MUSE EK G SYSTEM QT 386 ms MUSE EKG SYSTEM QTC 413 ms MUSE EKG SYSTEM P AXIS 52 degrees MUSE EKG SYSTEM R AXIS 76 degrees MUSE EKG SYSTEM T AXIS 45 degrees MUSE EKG SYSTEM EKG INTERPRETATION Sinus rhythm with short IN Otherwise normal ECG No previous ECGs available MUSE EKG SYSTEM 06/09/2016 3:51 PM EDT 06/09/2016 6:59 PM EDT Arianna Vincent MEDICAL DOCTOR CARDIOVASCULAR-WITH INBSK T RTG Final Result MUSE EKG SYSTEM documented in this encounter Visit Diagnoses Diagnosis Preop examination Preoperative examination, unspecified Varicose veins of left lower extremities with pain Mood disorder Unspecified episodic mood disorder SVT (supraventricular tachycardia) ([facility]HS) Other specified cardiac dysrhythmias documented in this encounter Additional Health Concerns Infection Onset Date Last Indicated Resolved Time COVID-19 Rule-Out 06/05/2020 06/05/2020 06/06/2020 12:12 PM EDT documented as of this encounter Care Teams Patient Financial Representative Relationship Specialty Start Date End Date Mavis Grimes MD [address] [phone] PCP - General Internal Medicine 02/03/16 07/05/20 Leonora Beasley NP [address] [address] PCP - General Family Medicine 07/06/20 Mavis Grimes MD [address] [address] Internal Medicine 02/03/16 documented as of this encounter
--- OUTSIDE RECORDS SUMMARY | 2024-10-04 10:47 | XMS_ITS | Patient Health Record ---
Author Organization Primary Physician [facility] Address [address] [address] Care Team Providers Care Hybrid Car Mechanic Name Role Phone Leonora Dixon Primary Care Provider Unavail able Louis Jeffers Unavailable [phone] REASON FOR REFERRAL No Information SOCIAL HISTORY Sex Assigned At : Social History Observation Description Sex Assigned At Unknown PLAN OF TREATMENT Pending Test Test Name Order Date HIDA Scan 06/08/2020 Insurance Providers Payer Name Payer Address Payer Phone Subscriber Number Group Number Insured Name Patient Relationship to Insured Coverage Start Date Coverage End Date [facility] [address] [place] [address] [id number] DUKE COFFMAN Self - patient is the insured
--- OUTSIDE RECORDS SUMMARY | 2024-10-04 10:47 | XMS_ITS | Data Portability ---
Author Organization [facility] [employer], svmg_admin Address [address] [place] [id number] Care Team Providers Care Appliance Sales Associate Name Role Phone CAREN BERRY Case Liner RYAN DERMATOLOGY Heel Wheeler MARIELLA HENRIQUEZ Primary Care Provider Unavailabl e Assessment Encounter Date Assessment Date Assessment LastModified by Organization Details LastModified Time 11/06/2023 11/06/2023 Health maintenance discussed with patient The importance of regular pap smears, breast evaluation and sexual health discussed with patient. We discussed intake of calcium and Vitamin D and exercises for bone health Diet intake the importance of balanced diet and avoidance of excessive animal fats and red meat discussed with patient Labs reviewed and multivitamin use discussed The importance of regular sleep cycle and adequate hours of sleep discussed with patient We talked about avoidance of stress and healing therapies for the mind such as meditation and yoga. We discussed the importance of regular exercise and benefits of walking. We reviewed medications supplements and vaccines. All of patients questions answered to her satisfaction. Patient is comfortable with plan [email or web address] Not available 11/06/2023 12:10:47 Plan of Treatment Reminders Order Date Submit Date Provider Last Modified By Organization Details Last Modified Time Details Appointments Establish ed Patient 20 2024 10:40A M MARIELLA HENRIQUEZ NP Not available Not available Not available Lab HbA1c (hemoglob in A1c), blood 2023 024 [facility], [address] [place] [address], [address], 03/27/2024 08:51:47 unlisted lab - TSH reflex to t4f 2023 024 [facility], [address] [place] [address], [address], 03/27/2024 08:51:48 lipid panel, serum 2023 024 [facility], [address] [place] [address], [address], 03/27/2024 08:51:47 CMP, serum or plasma 2023 024 [facility], [address] [place] [address], [address], 03/27/2024 08:51:47 CBC w/ auto diff 2023 024 [facility], [address] [place] [address], [address], 03/27/2024 08:51:47 Referral orthopedi c spine surgeon referral 2024 025 [facility], [address] [place] [address] [place], [address], 09/17/2024 14:01:57 orthopedi c spine surgeon referral 2022 023 [email or web address] 4 Christopher Rojas MD, [address] [place] [address] [place], [address], 05/10/2023 15:08:45 Procedures None recorded. Surgeries None recorded. Imaging MRI, lumbar spine, w/o contrast 2024 025 [facility] (Central Scheduling For Imaging And Labs), [address] [place] [address], [address], 09/25/2024 08:19:02 MRI, lumbar spine, w/o contrast [email or web address] (Central Scheduling For Imaging And Labs), [address] [place] [address], [address], 11/28/2023 09:36:26 XR, thoracic spine, 2 view 2022 023 [email or web address] 4 [facility] (Radiology), [address] [place], [address], 05/10/2023 15:09:33 XR, lumbar spine 2022 023 [email or web address] 4 [facility] (Radiology), [address] [place] [address], [address], 05/10/2023 15:09:33 Medication Orders sertralin e 150 mg capsule 2024 025 [facility]/Pharmacy #[id number], [address] [place], [address], 09/17/2024 13:46:37 Medrol (Davion) 4 mg tablets in a dose pack 2023 024 [email or web address] [id number], [address], [place], [address], 11/06/2023 11:48:32 Patient TargetsNo targets recorded. Patient Instructions Encounter Date Encounter Id Patient Instructions Last Modified By Organization Details Last Modified Time 11/06/2023 [id number] A healthy lifestyle: care instructions [facility] Not available 11/06/2023 12:09:52 Reason for Referral Orthopedic Spine Surgeon Ref erral for Thoracic back pain Referring Physician: Mariella Henriquez [facility], Encounter Date: 01/03/2023 Orthopedic Spine Surgeon Ref erral for Chronic low back pain Referring Physician: Mariella Henriquez [facility], Encounter Date: 09/17/2024 Results Created Date Observation Date Name Description Value Unit Range Abnormal Flag Note LastModifiedBy Organization Detail LastModifiedTime 07/11/2007/11/2022 COVID -19, FLU A+B AND RSV sars-cov-2 Detect ed not detect ed abnormal Not Available [facility] [address], [address], 07/11/2022 18:19:10 07/11/20 22 07/11/2022 COVID -19, FLU A+B AND RSV influenza A Negati ve negati ve Not Available [facility] [address], [address], 07/11/2022 18:19:10 07/11/20 22 07/11/2022 COVID -19, FLU A+B AND RSV influenza B Negati ve negati ve Not Available [facility] [address], [address], 07/11/2022 18:19:10 07/11/20 22 07/11/2022 COVID -19, FLU A+B AND RSV RSV Negati ve negati ve Not Available [facility] [address], [address], 07/11/2022 18:19:10 07/11/20 22 07/11/2022 COVID -19, FLU A+B AND RSV note Order ing physi renetta: Krishan Rosenthal y Other provi ders: Room Emerg ency, , , Mellissa sa Ashok, , , Not Available [facility] [address], [address], 07/11/2022 18:19:10 09/21/19 24 09/21/2023 XR, lumbo sacra l spine , 2 or 3 view Patien t Name: DUKE COFFMAN 609; 729 Locati on: [facility] [id number] 659 [facility] Hospit al [address] [place] [address]- Radiol ogy ACCESS ION EXAM DATE/T SCHUYLER PROCED URE ORDERI NG STATUS PROVID ER [id number] 09/21/19 24 10:07 XR Spine AYANA HINES, ARMEN Auth 21 EST Lumbar 3 Views D (Verif ied) Reason For Exam (XR Spine Lumbar 3 Views) low back pain Report STUDY: Lumbar spine radiog raphs, 3 views INDICA TION:L ow back pain COMPAR DREAD: None FINDIN GS: 5 nonrib -beari ng lumbar type verteb maurice. Straig htenin g of normal lumbar lordos is, positi onal versus parasp inal muscle spasm. Lumbar verteb ral body height s and alignm ent is preser sean. Interv ertebr al disc spaces are preser sean. No acute fractu re or malali gnment . Modera te amount of stool seen in the ascend ing colon. Both acromi oclavi cular joints are symmet lee. IMPRES NATIVIDAD: No acute fractu re or malali gnment Readin g Site: [facility] ____ Fin al Report Dictat ed: 2023 1:02 pm Dictat ed By: NASIR MITCHELL MD onic Signat ure: 2023 1:03 pm Signed By: NASIR MITCHELL MD ing: AYANA HINES, ARMEN El Consul ting: [address] (Radiology) [address] [place] [address], [address], 09/22/2023 15:59:52 09/21/19 24 09/21/2023 XR, lumba r spine No observ ation record ed. [address] (Radiology) [address] [place] [address], [address], 09/22/2023 15:57:06 10/11/19 24 10/11/2023 XR, hip, unila teral , 2 or 3 view Patien t Name: DUKE COFFMAN 609; 506 Locati on: [facility] [id number] 659 [facility] Hospit al [address] [place] [address]- Radiol ogy ACCESS ION EXAM DATE/T SCHUYLER PROCED URE ORDERI NG STATUS PROVID ER [id number] XR Hip 2 Views JANEEN MUIR MD, Auth 34 12:24 EST Right TREVOR C (Verif ied) Reason For Exam (XR Hip 2 Views Right) pain Report Exam: XR Hip 2 Views Right Compar dread: None availa ble Indica tion: : pain Findin gs: AP and frog-l eg views of the right hip were obtain ed. No fractu re or sublux ation is seen. Femora l head is congru ent with the acetab ulum. Bony elemen ts of the pelvis and proxim al femur as seen are unrema rkable . Soft tissue s are within normal limits . Impres natividad: Unrema rkable right hip. Readin g Site: [facility] ____ Fin al Report Dictat ed: 2023 1:56 pm Dictat ed By: RUFINA RICHARD ND, MD onic Signat ure: 2023 1:57 pm Signed By: RUFINA RICHARD ND, MD ing: ASHOK BARRIGA, VIANEY Whyte Consul ting: [facility] (Radiology) [address] [place] [address], [address], 10/12/2023 09:44:24 09/25/19 25 09/24/2024 MRI, lumba r spine , w/o contr ast Patien t Name: DUKE COFFMAN : 988 Sex:Fe male 609; 505 Locati on: [facility] - [place] [id number] 659 [facility] al [address] [place] [address]- Radiol ogy ACCESS ION EXAM DATE/T SCHUYLER PROCED URE ORDERI NG STATUS PROVID ER [id number] MRI Spine MARTINEZ BARRIGA, Auth 45 16:13 EST Lumbar w/o KARISS [...] ing: MARTINEZ BARRIGA, VIANEY Whyte Consul ting: Patiwilliam t Name: DUKE COFFMAN : 988 Sex:Fe male 609; 505 Locati on: [facility] - [place] [id number] 659 [facility] al [address] [place] [address]- Radiol ogy Report Soft tissue : Prever [...] the study and agree with the report suzi jacobo gs. 1.Read ing Site: [facility] ____ Juwan neves Report Dictat ed: 2024 5:05 pm Dictat ed By: BARTOLO IBRAHIM MD Signat ure: 2024 8:16 am Signed By: CHALINO DIAZ MD, ISAMAR Holt ing: MARTINEZ BARRIGA, VIANEY umanag: [facility] (Radiology) [address] [place], [address], 09/25/2024 11:13:56 09/25/19 25 09/24/2024 MRI, lumba r spine , w/o contr ast No observ ation record ed. [facility] Medical Records [address] [place], [address], 09/25/2024 09:53:53 Result Notes None recorded. 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 7 14:07:17 Cough 59443299 Completed 04/21/2017 Mavis Grimes MD [address] [place], [address], [facility] 7 14:20:52 Chest pain 38919551 Completed 04/21/2017 Mavis Grimes MD [address] [place], [address], [facility] 7 14:07:21 Paroxysm al supraven tricular tachycar marvel 34742109 Active she gets occasiona l bouts of tachycard ia, she had an ablation in 2010, triggered by anxiety Patria frederick [facility] 3 15:06:19 Anxiety state 279663415 Active more work based, she does not want to take anything daily, she takes clonazepa m at bedtime Patria frederick [facility] 3 15:06:18 Amenorrh ea 22107062 Completed 04/21/2017 Mavis Grimes MD [address] [place] [address], [address], [facility] 7 14:20:47 Loss of appetite 90757429 Completed 04/21/2017 Mavis Grimes MD [address] [place] [address], [phone] , [facility] 7 14:07:08 Depressi ve disorder 94714853 Active she sees psych Patria frederick [facility] 3 15:06:18 Malaise and fatigue 816164199 Completed 04/21/2017 Mavis Grimes MD [address] [place] [address], [address] , [facility] 7 14:20:43 Anal fissure 14054190 Completed 09/27/2019 MARIELLA HENRIQUEZ NP [address] [place] [address], [phone] , [facility] 0 11:38:25 Internal hemorrho ids 21433772 Completed 09/27/2019 MARIELLA HENRIQUEZ NP [address] [place] [address], [address], [facility] 0 11:40:09 Vaginiti s 38217857 Completed 04/21/2017 Mavis Grimes MD [address] [place] [address], [phone] , [facility] 7 14:21:00 Injury of hand 627894441 Completed 04/21/2017 Mavis Grimes MD [address] [place], [address], [facility] 7 14:07:27 Conjunct ivitis 5412649 Completed 04/21/2017 Mavis Grimes MD [address] [place] [address], [address], [facility] 7 14:07:13 Varicose veins of lower extremit y 44119483 Active she had schleroth erpay on the left leg, now starting up slightly on the right leg Patria frederick, [facility] 3 15:06:19 Acute sinusiti s 14374840 Completed 04/21/2017 Mavis Grimes MD [address] [place] [address], [address], [facility] 7 14:07:25 Screenin g for malignan t neoplasm of cervix Active 201711/07/14 wnl 2018 high risk hpv and normal pap repeat in 12 months HAO II negative margins Leep done mar 2019 sees Caren pacheco pap advised in 3 months 03/10/21 wnl MARIELLA HENRIQUEZ NP [address] [place] [address], [address], [facility] 4 14:03:49 Abnormal eating pattern 775724942 Active 2017 pt does not eat until dinner, she has very little appetite, she needs to vape to get an appetite, she used to be over 200lbs and has some phobias about gaining weight, referred to nutrition ist Patria frederick [facility] 3 15:06:18 Cervical intraepi thelial neoplasi a 420496471 Active 2019 HAO II negative margins Leep done mar 2019 sees Caren Berry 12/17/18 ASCUS, HPV positive Patria frederick [facility] 3 15:06:18 Migraine with aura 9340651 Active 2019 Patria frederick [facility] 15:06:18 Problem Notes None recorded. Procedures Surgical History Date Name Laterality Status Provider Name and Address Organization Details Recorded Time 10/20/19 23 Perineoplasty rpr per nonob completed MARIELLA HENRIQUEZ NP [address] [place] [address], [address], [facility] 10/25/2022 07:36:09 04/08/20 19 LEEP completed Patria Bradshaw [facility] 09/27/2019 11:23:03 06/24/20 16 Other completed Kenna Sexton [facility] 07/14/2016 10:08:30 03/23/20 11 Other completed Not Available [facility] hospital 1 06:24:58 Other Surgeries completed Patria Bangura [facility] 03/10/2021 08:28:32 Vascular Surgery completed Patria Bradshaw [facility] 03/10/2021 08:28:32 Machine Hamper Maker Surgery completed Gunjan Sorensen [facility] 09/06/2023 11:26:50 Other completed Patria Demsarina [facility] 03/10/2021 08:28:32 Imaging Results Imaging Date Name Status LastModified by Organiz ation Details LastModified Time 09/21/2023 XR, lumbosacral spine, 2 or [address] (Radiology) [address] [place] [address], [address], 09/22/2023 15:59:52 09/21/2023 XR, lumbar spine completed [address] (Radiology) [address] [place] [address], [address], 09/22/2023 15:57:06 10/11/2023 XR, hip, unilateral, 2 or 3 view completed [facility] (Radiology) [address] [place] [address], [address], 10/12/2023 09:44:24 09/24/2024 MRI, lumbar spine, w/o contrast completed [facility] (Radiology) [address] [place], [address], 09/25/2024 11:13:56 09/24/2024 MRI, lumbar spine, w/o contrast completed [facility] Medical Records [address] [place], [address], 09/25/2024 09:53:53 Procedure Notes None recorded. Medical Equipment None Reported. Allergies Allergen ID Allergen Name Allergen Category Reaction Reaction Severity Criticality Documentation Date Start Date Code Code System Note Provider Name and Address Organization Details Recorded Time 427815 miconazol e nitrate medicatio n rash Not available Not available 11/23/2015 08665 RxNorm redne ss and swell ing Leatha frederick [facility] 6 13:47:47 437019 Wellbutri n medicatio n rash Not available Not available 11/23/2015 51676 RxNorm rash on face Leatha frederick [facility] 6 13:47:47 401703 hops extract food,medi cation anaphylax is Not available Not available 01/03/20232018 25979 6 RxNorm Patria frederick [facility] 3 15:06:08 866595 bupropion hydrochlo ride medicatio n vomiting Not available Not available 01/03/20232021 36247 4 RxNorm Patria frederick [facility] 3 15:06:08 013104 melon extract food anaphylax is Not available Not available 01/03/20232018 74395 10 RxNorm Patria frederick [facility] 3 15:06:08 240346 avocado allergeni c extract food,medi cation anaphylax is Not available Not available 01/03/20232018 24755 2 RxNorm Patria frederick [facility] 3 15:06:08 95523 amoxicill in medicatio n Not available Not available Not available 12/28/20102018 723 RxNorm Patria frederick [place] [facility] 3 15:06:08 67278 Augmentin medicatio n Not available Not available Not available 03/28/2011 56810 2 RxNorm Not Available [facility] 1 06:23:51 Medications Name Sig Start [...] Not Available Not Available Not Available Necon (28) 1 mg-35 mcg tablet active switched [...] e 50 mcg/actua tion nasal spray,arnaud pension [place] 2 sprays every day by intranas al [...] (BMI) Body weight Body temperature Respiratory rate Heart rate Oxygen saturation Oxygen saturation in Arterial blood by Pulse oximetry Pain severity - 0-10 verbal numeric rating [Score] - Reported Systolic blood pressure Diastolic blood pressure Provider Name and Address Organization Details Last Updated DateTime 2 162.56 cm 23.1 kg/m2 75698.4 8 g 97.7 [degF] 14 /min 82 /min 98 % 98 % 0 116 mm[Hg] 62 mm[Hg] Francisca Munoz [facility] 2 13:37:14 Date Recorded Body height Body mass index (BMI) Body weight Body temperature Pain severity - 0-10 verbal numeric rating [Score] - Reported Oxygen saturation Oxygen saturation in Arterial blood by Pulse oximetry Heart rate Systolic blood pressure Diastolic blood pressure Provider Name and Address Organization Details Last Updated DateTime 3 162.56 cm 30.4 kg/m2 19630.8 5 g 97.6 [degF] 1 97 % 97 % 80 /min 114 mm[Hg] 64 mm[Hg] Patria Bradshaw [facility] 3 15:09:35 Date Recorded Body height Body mass index (BMI) Body weight Pain severity - 0-10 verbal numeric rating [Score] - Reported Heart rate Oxygen saturation Oxygen saturation in Arterial blood by Pulse oximetry Body temperature Systolic blood pressure Diastolic blood pressure Provider Name and Address Organization Details Last Updated DateTime 4 162.56 cm 31.6 kg/m2 08159 g 6 83 /min 99 % 99 % 97 [degF] 107 mm[Hg] 73 mm[Hg] Gunjan Sorensen [facility] 4 11:31:10 Date Recorded Body height Body mass index (BMI) Body weight Pain severity - 0-10 verbal numeric rating [Score] - Reported Body temperature Heart rate Oxygen saturation Oxygen saturation in Arterial blood by Pulse oximetry Systolic blood pressure Diastolic blood pressure Provider Name and Address Organization Details Last Updated DateTime 4 162.56 cm 31.1 kg/m2 44582.6 2 g 6 97.6 [degF] 80 /min 100 % 100 % 110 mm[Hg] 78 mm[Hg] Gunjan Sorensen [facility] 4 11:51:51 Date Recorded Body height Body mass index (BMI) Body weight Body temperature Respiratory rate Pain severity - 0-10 verbal numeric rating [Score] - Reported Heart rate Oxygen saturation Oxygen saturation in Arterial blood by Pulse oximetry Systolic blood pressure Diastolic blood pressure Provider Name and Address Organization Details Last Updated DateTime 5 162.56 cm 30.8 kg/m2 25164.8 3 g 97.3 [degF] 14 /min 7 80 /min 100 % 100 % 124 mm[Hg] 74 mm[Hg] Francisca Tammy [facility] 5 13:12:57 Social History Question Answer Notes LastModified by Organizat ion Details LastModified Time Tobacco Smoking Status Former Smoker Patria Leeann frederick [facility] 09/27/2019 11:27:10 Do You Have An Advance Directive? Yes Information not available 09/27/2019 What Is Your Level Of Alcohol Consumption? None Information not available 06/06/2018 Animal Exposure? Yes [email or web address] Information not available 09/06/2023 Are You Blind Or Do You Have Difficulty Seeing? No Information not available 04/21/2020 Is Blood Transfusion Acceptable In An Emergency? Yes Information not available 04/21/2020 What Is Your Level Of Caffeine Consumption? Moderate Information not available 09/06/2023 How Much Tobacco [...] not available 03/10/2021 Education 4 Year College [email or web address] Informati on not available 09/06/2023 What Is The Highest Grade Or Level Of School You Have Completed Or The Highest Degree You Have Received? 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 No [email or web address] Information not available 09/06/2023 How Hard Is It For You To Pay For The Very Basics Like Food, Housing, Medical Care, And Heating? Somewhat Hard [email or web address] Information not available 09/06/2023 When Did You Quit Smoking? 6-10yearssinricky pujachloeshahbaz [email or web address] Information not available 11/06/2023 How Many Days In The Past Year Have You Had A Heavy Drinking Consumption (4+ Female, 5+ Male)? 0 Information not available 09/06/2023 Are There Any Guns Present In Your Home? No [email or web address] Information not available 09/06/2023 Which Of Your Hands Is Dominant? Right Information not available 04/21/2020 Do You Use Insect Repellent Routinely? No Information not available 09/06/2023 Live Alone Or With Others? With Others [email or web address] Information not available 09/06/2023 Date Of Last Colonoscopy Never Information not available 06/06/2018 Date Of Last Bone Density Scan Never Information not available 06/06/2018 Date Of Last PSA Never Information not available 06/06/2018 Sexual Orientation Heterosexual Information not available 06/06/2018 Do You Have A Health Care Proxy? Yes Paul Coffman(Toya d) Information not available 09/27/2019 Have You Fallen Within The Last 12 Months No Information not available 01/19/2018 How Many Falls Have You Had Within The Last 12 Months? 0 Information not available 06/06/2018 If >2 Falls, Or 1 Fall With Serious Injury, Is There An Action Plan In Place? No Information not available 01/19/2018 Have You [place] Down, Depressed, Or Hopeless In The Last [...] 117 Information not available 06/30/2011 Marital Status [email or web address] Informati on not available 09/06/2023 What Was The Date Of Your Most Recent Tobacco Screening? 09/17/2024 Information not available 09/17/2024 How Many Children Do You Have? 0 Information not available 09/06/2023 Performs Monthly Self-breast Exam? Yes [email or web address] Information not available 09/06/2023 Do You Have Any Pets? Yes Information not available 03/10/2021 Do You Use Protection During Sex? Always [email or web address] Information not available 09/06/2023 What Is Your Relationship Status? Information not available 03/10/2021 Are You Sexually Active? Yes [email or web address] Information not available 09/06/2023 Number Of Sexual Partners 1 [email or web address] Information not available 09/06/2023 Smoke Alarm In Home Yes [email or web address] Information not available 09/06/2023 Do You Have Smoke And Carbon Monoxide Detectors In Your Home? Yes [email or web address] Information not available 09/06/2023 Are You Passively Exposed To Smoke? No [email or web address] Information not available 09/06/2023 Do You Or Have You Ever Used Smokeless Tobacco? Never Used Smokeless Tobacco Information not available 09/06/2023 Are There Any Smokers In Your House? No Information not available 09/06/2023 How Much Tobacco Do You Smoke? 0.5 PPD [email or web address] Information not available 09/06/2023 General Stress Level High [email or web address] Information not available 09/06/2023 Do You Feel Stressed (tense, Restless, Nervous, Or Anxious, Or Unable To Sleep At Night)? [id number] [email or web address] Information not available 09/06/2023 Do You Use Any Illicit Or Recreational Drugs? No Information not available 03/10/2021 Do You Use Sunscreen Routinely? No [email or web address] Information not available 09/06/2023 Has Tobacco Cessation Counseling Been Provided? No [email or web address] Information not available 09/06/2023 How Many Years Have You Smoked Tobacco? 15 Information not available 05/21/2018 Have You Used IV Drugs? No [email or web address] Information not available 09/06/2023 Are You Currently In School? No [email or web address] Information not available 09/06/2023 Do You Or Have You Ever Used Any Other Forms Of Tobacco Or Nicotine? No [email or web address] Information not available 11/06/2023 Sex: Female Functional Status Question Answer Note LastModified by Organizat ion Details LastModified Time Do you have difficulty walking or climbing stairs? No [email or web address] Information not available 09/06/2023 Do you have transportation difficulties? No [email or web address] Information not available 09/06/2023 Urinary incontinence assessment performed? Yes [email or web address] Information not available 09/06/2023 Are you able to walk? YESWOREST [email or web address] Information not available 09/06/2023 Do you have difficulty doing errands alone? No [email or web address] Information not available 09/06/2023 Are you able to care for yourself? Yes Information n ot available 04/21/2020 What is your exercise level? Occasional Information not available 04/14/2022 Mental Status Question Answer Note LastModified by Organizat ion Details LastModified Time Do you have difficulty concentrating, remembering or making decisions? Yes Concentrating issues/foggy [email or web address] Information not available 09/06/2023 Family History Relationship [...] Medical History Condition Response Anxiety Disorder Y Back/Neck Pain N Anxiety Y Depression Y Gynecological History Statement/Question Response History [...] Recorded Time Tdap 04/21/2017 completed Not Available [facility] 2019 02:14:03 Tdap 08/14/2005 completed Gunjan frederick [place] [facility] [place] 01/05/2024 10:02:11 Tdap 07/19/2022 completed Gunjan frederick MA [facility] [place] 01/05/2024 10:02:11 Past Encounters Encounter ID Performer Location Encounter Start Date Encounter Closed Date Diagnosis/Indication Diagnosis SNOMED-CT Code Diagnosis ICD10 Code Diagnosis Note [id number] [facility] [place] [facility] [address] [facility] [place] [address] 12/28/2010 13:06:29 12/28/2010 14:22:33 [id number] [facility] [address] [facility] [place] [address] 01/11/2011 15:56:03 01/11/2011 16:41:07 [id number] [facility] [address] [facility] [place] [address] 02/16/2011 11:24:02 02/16/2011 12:41:19 [id number] [facility] [address] [facility] [place] [address] 03/28/2011 15:20:19 03/28/2011 16:03:30 [id number] [facility] [address] [facility] [place] [address] 07/15/2011 11:32:32 07/15/2011 12:25:35 [id number] [facility] [place] [facility] [address] [place], [place] [address] 08/18/2011 12:58:06 08/18/2011 14:46:43 [id number] [facility] [place] [facility] [address] [place], [place] [address] 10/31/2011 14:58:40 10/31/2011 15:53:06 [id number] [facility] [place] [facility] [address] [place], [place] [address] 11/16/2011 10:39:30 11/16/2011 11:28:33 [id number] [facility] [place] [facility] [address] [place], [place] [address] 11/21/2011 13:13:51 11/21/2011 13:58:16 [id number] [facility] [place] [facility] [address] [place], [place] [address] 02/07/2012 11:25:50 02/07/2012 12:00:56 [id number] Mavis Grimes MD [facility] [place] [address] [place], [place] [address] 05/31/2012 12:35:34 05/31/2012 14:00:25 [id number] Mavis Grimes MD [facility] [place] [facility] [address] [place], [place] [address] 09/14/2012 11:33:13 09/14/2012 13:34:00 [id number] Vicky Mcguire [facility] [place] [facility] [address] [place], [place] [address] 11/09/2012 15:47:54 11/09/2012 16:48:07 [id number] Vicky Mcguire [facility] [place] [facility] [address] [place], [place] [address] 01/10/2013 15:46:10 01/10/2013 16:09:15 [id number] Mavis Grimes MD [facility] [place] [facility] [address] [place] [address] 07/15/2013 14:47:58 07/15/2013 16:01:47 Menstrual spotting 2580248 [id number] Mavis Grimes MD [facility] [place] [facility] [address] [place] [address] 11/11/2013 14:43:11 11/11/2013 15:24:48 Anxiety state 173821024 [id number] Leatha Turner [facility] [place] [facility] [address] [place] [address] 01/03/2014 13:52:29 01/03/2014 14:41:49 Foot pain 32324023 [id number] Leatha Turner [facility] [place] [facility] [address] [place] [address] 10/03/2014 15:38:06 10/03/2014 16:21:34 Anal fissure 30317784 Internal hemorrhoids 22137166 [id number] Alvino Manzo [facility] [place] [address] [place] [address] 11/07/2014 15:13:56 11/07/2014 16:15:30 Adult health examination 355577361 Vaginitis 20712621 Screening for malignant neoplasm of cervix 336576471 [id number] Mavis Grimes MD [facility] [place] [facility] [address] [place] [address] 11/23/2015 13:22:08 11/23/2015 14:56:02 Vaginitis 11124242 N76.0 [id number] Mavis Grimes MD [facility] [address] [place] [address] 02/01/2016 14:53:44 02/01/2016 16:00:11 Varicose veins of lower extremity 52332563 I83.779 [id number] Mavis Grimes MD [facility] [place] [facility] [address] [place] [address] 05/09/2016 10:04:51 05/09/2016 10:57:29 Acute sinusitis 43533282 J01.90 [id number] Michelle Myles MD [facility] [place] [address] 07/14/2016 09:41:07 07/14/2016 11:14:46 Anxiety state 423128793 F41.1 Neck pain 27892405 M54.2 [id number] Mavis Grimes MD 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 [place] [address] 09/25/2017 11:51:07 09/25/2017 13:31:12 Right lower quadrant pain 710116008 R10.31 Dysuria 01592606 R30.0 [id number] Mavis Grimse MD [facility] [place] [id number] 01/19/2018 11:14:45 01/19/2018 14:34:35 Backache 230710287 M54.9 [id number] Armen Au MD [facility] [place] [address] 05/21/2018 11:34:25 05/21/2018 12:17:28 Eustachian tube disorder 73551652 H69.91 Most likely diagnosis of such. Discussed etiology and management . Tylenol as needed. Home humidifier as needed. Will use Flonase as prescribed for further management . No indication of bacterial infection versus overt benign positional vertigo. If not improving or any concerns will follow through accordingl y. Notes understand ing. [id number] MARIELLA HENRIQUEZ NP Landon Jimenez [facility] [place] [address] 06/06/2018 10:50:45 06/06/2018 11:59:12 Screening for malignant neoplasm of cervix 577557396 Z12.4 Screening for cardiovascular system disease 760616910 Z13.6 Endocrine/ metabolic screening 309525653 Z13.228 Malnutriti on screening 546396188 Z13.21 Anemia screening 3520179 07 Z13.0 Anxiety state 147035762 F41.1 Abnormal e ating pattern 327339440 R63.8 Pityriasis versicolor 56 792558 B36.0 [id number] MARIELLA HENRIQUEZ NP Landon Jimenez [facility] [place] [address] 09/27/2019 11:11:20 09/27/2019 11:59:35 Adult health examination 059430472 Z00.00 Electronic cigarette user 894849727 Z72.0 Migraine with aura 14278 06 G43.109 Cervical intraepithelial neoplasia 561886365 N87.9 Anxiety state 612180207 F41.1 [id number] MANUELITO MIXMaranda Jimenez [facility] [place] [id number] 04/21/2020 08:52:30 04/21/2020 12:18:07 Migraine with aura 4329033 G43.109 Abdominal pain 29283736 R10.9 [id number] MAGALYSPrim jemal Jimenez [facility] [address] 05/06/2020 10:22:47 05/06/2020 15:49:22 Gastroesophageal reflux disease 139917373 K21.9 Abdominal pain 33229135 R10.9 [id number] Guy Reynaga MD MAGALYSPrim jemal Jim[facility] [address] 08/21/2020 08:19:01 08/22/2020 22:34:28 Acute tonsillitis 48007010 J03.90 [id number] MARIELLA HENRIQUEZ NP [facility] [place] [facility] [address] [place] [address] [place] [address] 12/21/2020 08:29:51 12/21/2020 09:26:28 Streptococcal sore throat 55380196 J02.0 Food anaphylaxis 3462433 2 T78.00XD [id number] [place] [facility] [place] [address] [place] [address] [place] [address] 03/10/2021 08:13:57 03/10/2021 09:16:17 Pain in right hand 8718510316 68568 M79.641 Right wrist and finger pain. All joints. Started about 2 weeks ago. 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 Pain is likely from overuse. She will start wearing a compressio n brace as needed. Discussed ice, ibuprofen, and joint health supplement such as glucosamin e and chondroiti n. She will f/u as needed. [id number] Guy Reynaga MD [facility] [place] [address] [place] [address] 04/14/2022 13:25:18 04/14/2022 14:09:27 Dysfunction of right eustachian tube 0756114835 863245 H69.91 neti pot, saline nasal spray, flonase prn Migraine 97066210 G43.90 9 improving, continue tylenol and B6/unisom for nausea 65805832 Z33.1 [id number] [place] [facility] [place] [address] [place] [address] 01/03/2023 14:58:43 01/03/2023 15:32:50 Thoracic back pain 048041708 M54.6 S/p epidural placement in Sep 2022 during labor. Epidural failed and it was eventually removed. Patient has had pain at insertion site since then. She is seeing a chiropract or once a week, trying to do stretches, taking alieve, and applying heat prn. Order placed for xrays. Referral placed to ortho. [id number] [place] [facility] [place] [address] [place] [address] 09/06/2023 11:17:19 09/06/2023 13:47:53 Acute low back pain 224878492 M54.50 B/L. R>L. Reviewed use of OTC meds, heat or ice as directed, stretching and strengthen ing exercises advised. Further imaging and referral to PT if not improved over the next 2 weeks. Discussed side effects of prescribed meds. Return to office if persistant numbness or tingling develop. [id number] MARIELLA HENRIQUEZ NP [facility] [address] [place] [address] 11/06/2023 11:33:48 11/06/2023 12:14:01 Acute low back pain 776999077 M54.50 B/L. R>L. Since having her daughter 09/2022. 09/21/23 lumbar and right hip xray completed- wnl. She has completed PT for the past 2 months with not much improvemen t of her back pain. Hip pain has improved. She completed at least 4-5 chiropract or treatments , now once weekly. Completed medrol dose pack 09/06/23 which provided only short term relief. She has been taking alieve, applying biofreeze/ tiger balm, applying heat pack. Due to persisent pain and lack of improvemen t with PT, will order lumbar MRI. Adult [facility] examination 989219683 Z00.00 Screening for cardiovascular system disease 708863732 Z13.6 Endocrine/ metabolic screening 519986182 Z13.228 Body mass index 30+ - obesity 396603701 Z68.31 Discussed diet and exercise recommenda tions. [id number] MARIELLA HENRIQUEZ NP [facility] [address] [place] [address] 09/17/2024 12:54:19 09/17/2024 13:31:12 Chronic low back pain 213962748 M54.50 B/L. R>L. Since having her daughter 09/2022. 09/21/23 lumbar and right hip xray completed- wnl. She has completed PT from October-2023. She has been taking alieve, applying biofreeze/ tiger balm, applying heat pack. She has also seen a chiropract or and massage therapist for the past several months with no improvemen t. Will order lumbar MRI. Referral placed to spine surgeon for further eval as well. Chronic sciatica 6462371 01 M54.31 B/L. R>L. Since having her daughter 09/2022. 09/21/23 lumbar and right hip xray completed- wnl. She has completed PT from October-2023. She has been taking alieve, applying biofreeze/ tiger balm, applying heat pack. She has also seen a chiropract or and massage therapist for the past several months with no improvemen t. Will order lumbar MRI. Referral placed to spine surgeon for further eval as well. Menorrhagia 565141754 N9 2.0 Seeing manager bench. She has the mirena IUD in but it is not helping. She is planning on having a hysterecto my in the future. Anxiety state 939195100 F41.1 Anxiety- Patient has been experienci ng [...] by Organization Details LastModified Time None Recorded Advance Directives Directive Y: Payers Encounter Date Sequence Insurance Name Policy Number Policy Basurto Covered Member ID Basurto Member ID Guarantor Name 04/14/2022 1 [facility] (O) [id number] Duke Bondi [id number] Duke Isabell Bondi 01/03/2023 1 [facility] (O) [id number] Duke Bondi [id number] Duke A Bondi 09/06/2023 1 [facility] (O) [id number] Duke A Bondi [id number] Duke Isabell Bondi 11/06/2023 2 [facility] [employer] [place] [employer] (HMO) [id number] Duke A Bondi [id number] Duke A Bondi 09/17/2024 1 [facility] [place] [place] [id number] Duke Coffman [id number] Duke Coffman Notes Date Note Type Note Provider Name and Address Organization Details Recorded Time 04/14/2022 text/html Right ear noise and fullness x 4 days, no fever or chills. Migraine x 3 days, improving now, has had N/V. Taking tylenol prn without much help.16 weeks , has had morning sickness, B6 and unisom have helped. Not using ondansetron. Guy Reynaga MD [address] [place], [address], [facility]. 04/14/2022 17:27:27 01/03/2023 text/html Patient had a ba by on 09/29/22. She had an epidural which only provided 30 mins of relief. Since then she has had lumbar back pain. Pain is intermittent.She is seeing a chiropractor once a week. She is walking every day, stretching, watching her posture. MARIELLA HENRIQUEZ NP [address] [place] [address], [phone], [facility]. 01/03/2023 15:28:47 09/06/2023 text/html Lower back pain. She has been lifting her daughter a lot because her just had back surgery. Radiating to her pelvis and down her buttocks and legs. Comfortable laying flat. She is taking alieve, biofreeze, cannabis. 11 month old daughter. MARIELLA HENRIQUEZ NP [address] [place] [address], [phone], [facility] 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 MARIELLA HENRIQUEZ NP [address] [place] [address], [phone], [facility]. 11/06/2023 12:18:06 09/17/2024 text/html Patient continue s to have [...] on having a hysterectomy. MARIELLA HENRIQUEZ NP [address] [place] [address], [phone], [facility]. 09/17/2024 13:46:57 OBGyn Episode No OBEpisode recorded.
--- OUTSIDE RECORDS SUMMARY | 2024-10-04 10:47 | XMS_ITS | Clinical Summary ---
Author Organization [facility] Address [address] [place] [address] Care Team Providers Care Material Loader Name Role Phone Mavis Grimes MD Unavailable [phone] Leonora Beasley NP Primary Care Provider [phone] Allergies Active Allergy Reactions Criticality Noted Date Comments Amoxicillin 03/17/2011 Same Food 02/17/2016 Melon and melon scented things - anaphylaxis Hops Oil 02/17/2016 Hives. Vomiting Penicillin G Other High 08/19/2011 Horrible yeast infection Hydrocodone-Acetaminoph en Nausea/GI Upset 06/09/2016 Medications * This document contains information received from the source organization and may not represent a complete record from that organization. ClonazePAM 0.5 MG OR TABS 1 TABLET 3 TIMES DAILY Active Norgestimate-Eth inyl Estradiol 0.18/0.215/0.25 MG-25 MCG Tab 1 TABLET DAILY A ctive Ibuprofen 800 MG TabIndications:L eft shoulder strain, initial encounter,Neck sprain, initial encounter,Trapez ius strain, left, initial encounter,Muscle spasm 1 TABLET 3 TIMES DAILY WITH FOOD 90 Tab 0 6 Active Sertraline HCl 25 MG TabIndications:A cute pharyngitis, unspecified etiology,Acute bronchitis, unspecified organism 1 TABLET DAILY Activ e Alum & Mag Hydroxide-Simeth (MAALOX ADVANCED MAX ST) 400-400-40 MG/5ML SuspensionIndica tions:Acute pharyngitis, unspecified etiology,Acute bronchitis, unspecified organism Maalox 20cc mixed with viscous Lidocain 10cc PO times one 30 mL 9 Active Cephalexin 750 MG CapIndications:A cute pharyngitis, unspecified etiology,Acute bronchitis, unspecified organism 1 bid for 10d, ok to take with mild Amoxi allergy 20 Cap 9 Active LACTOBACILLUS EXTRA STRENGTH CapIndications:A cute pharyngitis, unspecified etiology,Acute bronchitis, unspecified organism 5-10 billion bacterial count a day; take 2-4h apart from dose of antibiotics 14 Cap 9 Active Alum & Mag Hydroxide-Simeth (MAALOX ADVANCED MAX ST) 400-400-40 MG/5ML SuspensionIndica tions:Acute pharyngitis, unspecified etiology,Acute bronchitis, unspecified organism Maalox 20cc mixed with viscous Lidocain 10cc PO q4h prn 600 mL 9 Active Lidocaine HCl (LIDOCAINE VISCOUS) 2 % Solution 20 ML PO EVERY 4 HOURS NEEDED 300 mL 9 Active Active Problems Problem Noted Date Diagnosed Date Varicose veins of left lower extremities with pa in 02/17/2016 Overview (05/14/2017): Rib fracture 08/19/2011 Overview (08/19/2011): Secondary to coughing Immunizations Name Administration Dates Next Due DTP 09/01/1989,02/24/1988,1987 ,1987 HIB (PRP-T) 03/22/1989 MMR 12/01/1988 OPV 09/01/1989,1987,1987 Tdap 07/19/2022,04/21/2017 Family History Medical History Relation Name Comments Hypertension Father Asthma Sister Relation Name Status Comments Father Alive Mother Alive Sister Social History Tobacco Use Types Packs/Day Years Used Date Smoking Tobacco: Former Cigarettes 0.5 20.6 S tarted: 02/17/2004 Smokeless Tobacco: Former Quit: 01/13/2016 Tobacco Cessation:Counseling Given: Yes Alcohol Use Standard Drinks/Week Comments No 0 (1 standard drink = 0.6 oz pur e alcohol) Intimate Partner Violence Answer Date R ecorded Fear of Current or Ex-Partner Not on file Emotionally Abused Not on file 04/02/2023 Physically Abused Not on file 04/02/2023 Sexually Abused Not on file 04/02/2023 Feel Safe at Home Not on file 04/02/2023 Comments No Sex and Gender Information Value Date Recorded Sex Assigned at Not on file Legal Sex Female 1:46 AM EDT Gender Identity Not on file Sexual Orientation Not on file 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 Not on file Not on file Last Filed Vital Signs Vital Sign Reading Time Taken Comments Blood Pressure 99/66 12/17/2018 1:06 PM EDT Pulse 62 12/17/2018 1:06 PM EDT Temperature 36.6 ??C (97.9 ??F) 12/17/2018 1:06 PM ED T Respiratory Rate 16 12/17/2018 1:06 PM EDT Oxygen Saturation 99% 12/17/2018 1:06 PM EDT Inhaled Oxygen Concentration - - Weight 54.4 kg (120 lb) 04/01/2017 1:10 PM EDT Height 162.6 cm (5' 4 ) 04/01/2017 1:10 PM EDT Body Mass Index 20.6 04/01/2017 1:10 PM EDT Plan of Treatment Health Maintenance Due Date Last Done Comments Hepatitis C Screening 1987 Pap Smear 2003 Hep B (1 of 3 - 19+ 3-dose series) 2006 COVID-19 Vaccine (2023- season) 2024 Influenza (#1) 2024 DTaP/Tdap/Td (7 - Td or Tdap) 07/19/2032 07/19/2022, 04/21/2017, 09/01/1989, Additional history exists Zoster (Shingrix) (1 of 2) 2037 Hib Completed 03/22/1989 EKG Discontinued 06/09/2016 Chest Imaging Discontinued 12/17/2018 HPV Vaccine Aged Out No longer eligi ble based on patient's age to complete this topic Hep A Aged Out No longer eligi ble based on patient's age to complete this topic Meningococcal ACWY Aged Out No longer eligible based on patient's age to complete this topic Pneumococcal Aged Out No longer eligi ble based on patient's age to complete this topic Procedures * Due to [place] state law, this organization might not be sharing negative HIV tests. Procedure Name Priority Date/Time Associated Diagnosis Comments XRAY CHEST, 2 VIEWS, PA & LATERAL (DX: COUGH R05.9/ 786.2) FC STAT (All results called to provider) 12/17/2018 2:08 PM EDT EKG-TO BE READ & BILLED BY ADULT OR PEDIATRIC CARDIOLOGY Routine 06/09/2016 3:51 PM EDT Preop examination Varicose veins of left lower extremities with pain Mood disorder (HCC) SVT (supraventricular tachycardia) (HCC) from Last 3 Months or Most Recently Relevant to Health Maintenance Results * Due to [place] state law, this organization might not be sharing negative HIV tests. * XRAY CHEST, 2 VIEWS, PA & LATERAL (DX: COUGH R05/ 786.2) FC (12/17/2018 2:08 PM EDT) Anatomical Region Laterality Modality CHEST Radiographic Arline ging 12/17/2018 2:30 PM EDT Narrative 12/17/2018 2:30 PM EDT 2 view chest x-ray Comparison: None Findings: No consolidation or large effusion. Heart size is normal. No acute fracture. IMPRESSION: 1. No consolidation or large effusion Procedure Note Dalia Montes MD - 12/17/2018 2 view chest x-ray Comparison: None Findings: No consolidation or large effusion. Heart size is normal. No acute fracture. IMPRESSION: 1. No consolidation or large effusion us Tay Troy MD IMG XRAY NO CONTRAST ORDERABLES Final Result * EKG-TO BE READ AND BILLED BY [...] SYSTEM EKG INTERPRETATION Sinus rhythm with short OK Otherwise normal ECG No previous ECGs available MUSE EKG SYSTEM 06/09/2016 3:51 PM EDT 06/09/2016 6:59 PM EDT Arianna Vincent PIPE COVERER CARDIOVASCULAR-WITH INBSK T RTG Final Result MUSE EKG SYSTEM from Last 3 Months or Most Recently Relevant to Health Maintenance Insurance [email or web address] ([employer]WORK [employer]-OUT OF NETWORK) WORKERS COMPENSATION Care Teams Material Loader Relationship Specialty Start Date End Date Leonora Beasley NP [address] [address] PCP - General Family Medicine 07/06/20 Mavis Grimes MD [address] [phone] Internal Medicine 02/03/16
== END 2024-10-04 10:49 | disposition home or self-care (01) ==
PROVIDERS: Visit Provider Physician Assistant
DX: M25.551 Pain in right hip (principal); M53.3 Sacrococcygeal disorders, not elsewhere classified; G89.29 Other chronic pain
CPT/HCPCS: 99204